=== PATIENT | female | born 1995 | race Two or more races ===

== ENCOUNTER 2019-09-19 00:26 | Emergency (ER) | payer MEDICAID ==
[~2019-09-19] VITALS: Ht 165.1 cm; Wt 100.0 kg
[2019-09-19 00:31] VITALS: BP 135/94
== END 2019-09-19 01:45 | disposition left against medical advice (07) ==
LOC: EMS 00:26
DX: M25.561 Pain in right knee (principal); Z53.21 Procedure and treatment not carried out due to patient leaving prior to being seen by health care provider